=== PATIENT | male | born 1970 | race Caucasian/White ===

== ENCOUNTER 2022-12-06 13:27 | Emergency (ER) | payer MEDICAID, OTHER ==
[~2022-12-06] VITALS: Ht 177.8 cm; Wt 66.6 kg
[~2022-12-06 13:27] MED LIST: NO HOME MEDS
[2022-12-06 13:33] VITALS: BP 147/89
== END 2022-12-06 16:36 | disposition home or self-care (01) ==
LOC: ER 13:27
DX: S90.32XA Contusion of left foot, initial encounter (principal); X58.XXXA Exposure to other specified factors, initial encounter; Y93.89 Activity, other specified; Y92.89 Other specified places as the place of occurrence of the external cause; Y99.8 Other external cause status
CPT/HCPCS: 73610; 73630; 99284; L1930